=== PATIENT | female | born 1960 | race Caucasian/White ===

== ENCOUNTER 2018-03-16 12:59 | Emergency (ER) | payer MEDICARE ==
[~2018-03-16] VITALS: Ht 170.2 cm; Wt 106.6 kg
--- NOTE | 2018-03-16 13:00 | NUR ---
ARRIVAL PATIENT TO ROOM 3, STATES THAT SHE TRIPPED OVER HER FLIP FLOP AND THAT SHE HIT HER HEAD ON THE CORNER OF THE TABLE. PATIENT STATES THAT HAS NO OTHER MEDICAL HISTORY. PATIENT CONNECTED TO ALL MONITORS, ASSESSMENT COMPLETED, AWAITING MD STOVER.
--- NOTE | 2018-03-16 13:02 | NUR ---
C-COLLAR PATIENT PLACED IN A C-COLLAR. C-SPINE IMMOBILIZED.
--- NOTE | 2018-03-16 13:05 | NUR ---
CT THIS NURSE SUGGESTED HEAD CT. EDP AWARE OF FALL WITH HEAD INJURY.
[2018-03-16 13:09] VITALS: BP 201/93
[2018-03-16] MEDS ORDERED: NORCO 10MG PO ONE (13:10)
[2018-03-16] MEDS ORDERED: NORCO 10MG PO STA (13:10)
--- NOTE | 2018-03-16 13:15 | ER.PDOC ---
General Chief Complaint: Head Injury Stated Complaint: FALL,HEAD INJURY Time seen by MD: 13:33 Source: patient History of Present Illness Occurred: just prior to arrival Where: home Severity: moderate Context: fall Associated Symptoms: No Loss of Consciousness Allergies: Coded Allergies: No Known Allergies (Unverified , 03/16/18) Past Medical History Medical History: cardiac problems Surgical History: hysterectomy LMP (females 10-50): hysterectomy Social History Smoking: cigarettes, less than 1 pack/day Alcohol Use: occassionally Drug Use: none Reviewed Nursing Reviewed: Vital Signs, Abn. Noted Review of Systems All Other Systems: Reviewed and Negative Physical Exam General Appearance: alert, no distress 1 - LAC Neck: pain with movement Eyes: lids nml, conjunctivae nml, PERRL, EOMI ENT: nml external exam, pharynx nml, no injury to teeth, no injury lips, no injury gums Neuro/Psych: oriented x 3, sensation nml, motor nml, CN's nml as tested, mood/ affect nml Respiratory: chest non-tender, no resp distress CVS: heart sounds nml, reg. rate & rhythm Abdomen: non-tender Skin: intact, nml palp ED LACERATION WOUND REPAIR # of Wounds/Lacerations Presen: 1 Wound Location & Length (Requi: 3 Wound Length (cm): 3 Wound cleaned: betadine Distal NVT: neuro intact Anesthesia type: local Anesthesia: 1% Lidocaine Wound's Depth, Shape: superficial, linear Wound Explored: clean Suture Size/Type: 6:0 Suture Style: interupted Results/Orders Results/Orders Administered Medications Medications (Trade) Dose Ordered Sig/Roxanne Route PRN Reason Start Time Stop Time Status Last Admin Dose Admin Acetaminophen/ Hydrocodone Bitart ([place] 10mg) 1 each STAT STAT PO 03/16/18 13:10 03/16/18 13:12 DC 03/16/18 13:14 Course Sepsis Screening Results: Posi: POSITIVE SEPSIS RISK Vitals & review Data Vital Sign - Last 24 Hours 03/16/18 03/16/18 03/16/18 03/16/18 13:00 13:00 13:09 13:09 Temp 98.4 98.0 98.0 98.4 98.0 98.0 Pulse 90 94 94 Resp 18 16 16 18 B/P (MAP) 201/93 (129) Pulse Ox 98 98 O2 Delivery Room Air Room Air Sepsis Infection Criteria Pres: None O2 Sat by Pulse Oximetry: 98 Departure Time of Disposition: 15:22 Disposition: 01 HOME, SELF-CARE Impression: Primary Impression: Forehead laceration Condition: Improved Patient Instructions: Head Injury, Adult, [id number] Referrals: PCP,UNKNOWN (PCP) PRIMARY CARE PROVIDER Duration or Time Spent with Pa: 2 HRS LUCILA MEDINA MD Mar 16, 2018 13:15
[2018-03-16] MEDS ORDERED: LIDOCAINE 1% VIAL ONE (13:18)
--- NOTE | 2018-03-16 13:38 | NUR ---
CT PT OUT OF ROOM TO CT
--- NOTE | 2018-03-16 13:42 | NUR ---
SUTURES 6 SUTURES TO RIGHT SIDE OF HEAD.
--- NOTE | 2018-03-16 13:42 | NUR ---
CT PATIENT BACK FROM CT.
--- NOTE | 2018-03-16 13:42 | NUR ---
CT PT BACK IN ROOM
--- NOTE | 2018-03-16 14:00 | DIREP ---
PROCEDURE:CT CERVICAL SPINE WITHOUT CONTRAST TECHNIQUE:Axial cuts were obtained through the cervical spine. The images were viewed at bone settings. Sagittal and coronal reconstructions are provided. COMPARISON:None. INDICATIONS:FALL FINDINGS: ALIGNMENT:Normal. VERTEBRAE:No fracture is demonstrated. Post surgical changes are seen with anterior fusion with plate and screws from C3 through C5 with interbody fusion at C3-4 and C4-5 in good position. Prominent anterior spurring is seen at C2-3 and C5-6 through C7-T1. PARASPINAL AREA:Normal. OTHER:No additional findings. CERVICAL DISC LEVELS C2-C3:Calcification is seen of the posterior longitudinal ligament which results in mild canal stenosis at this level without neural foraminal narrowing. C3-C4:Small posterior endplate osteophytes are seen without canal stenosis. C4-C5:Small posterior endplate osteophytes are seen without canal stenosis. C5-C6:Small posterior endplate osteophytes are seen without canal stenosis. C6-C7:Normal. C7-T1:Normal. CONCLUSION: 1. No fracture or subluxation is seen. 2. Post surgical changes are seen with anterior and interbody fusion from C3 through C5. There are findings of calcification of the posterior longitudinal ligament at C2-3 which results in mild canal stenosis at this level. Dictated by: Kasi Reed M.D. On 03/16/2018 at 01:51 PM
--- NOTE | 2018-03-16 14:39 | PCM.EKG ---
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
[2018-03-16] MEDS ORDERED: TRIPLE ANTIBIOTIC OINTMENT TP ONE (14:47)
[2018-03-16 14:59] VITALS: BP 165/78
[2018-03-16] MEDS ORDERED: BOOSTRIX TDAP IM ONE (15:00)
[2018-03-16] MEDS ORDERED: TETANUS DIPHTHERIA TOXOIDS IM ONE (15:04)
[2018-03-16 15:15] VITALS: BP 165/78
== END 2018-03-16 15:15 | disposition home or self-care (01) ==
LOC: ER 12:59
DX: S01.81XA Laceration without foreign body of other part of head, initial encounter (principal); F17.210 Nicotine dependence, cigarettes, uncomplicated; Z90.710 Acquired absence of both cervix and uterus; W01.190A Fall on same level from slipping, tripping and stumbling with subsequent striking against furniture, initial encounter; Y93.89 Activity, other specified; Y92.098 Other place in other non-institutional residence as the place of occurrence of the external cause; Y99.8 Other external cause status
CPT/HCPCS: 12013; 72125; 90471; 90714; 93005; 96372; 96374; 99284; J2001; 99285